=== PATIENT | female | born 1995 | race African-American/Black ===

== ENCOUNTER 2016-12-21 01:26 | Emergency (ER) | payer MEDICAID ==
[~2016-12-21] VITALS: Ht 172.7 cm; Wt 84.1 kg
[~2016-12-21 01:26] MED LIST: RISP1TAB89 PO; SODI44SP18 NASAL
[2016-12-21] MEDS ORDERED: ACETAMINOPHEN 325 MG TABLET PO ONE (03:15)
[2016-12-21] MEDS ORDERED: PredniSONE 20 MG TABLET PO ONE (03:15)
[2016-12-21 03:40] VITALS: BP 134/80
== END 2016-12-21 03:41 | disposition home or self-care (01) ==
LOC: EMS 01:30
DX: H10.9 Unspecified conjunctivitis (principal); Z88.8 Allergy status to other drugs, medicaments and biological substances
CPT/HCPCS: 99283; J7512

== ENCOUNTER 2023-06-23 16:47 | Emergency (ER) | payer OTHER ==
[~2023-06-23] VITALS: Ht 170.2 cm; Wt 90.9 kg
[2023-06-23 17:16] VITALS: BP 112/50; PULSE 90; RESP 14; TEMP 98.8
== END 2023-06-23 18:16 | disposition left against medical advice (07) ==
LOC: EMS 16:48
DX: M25.522 Pain in left elbow (principal); M25.572 Pain in left ankle and joints of left foot; Z53.21 Procedure and treatment not carried out due to patient leaving prior to being seen by health care provider
CPT/HCPCS: 99281; Z7502

== ENCOUNTER 2024-12-02 13:04 | Emergency (ER) | payer SELFPAY ==
[~2024-12-02] VITALS: Ht 177.8 cm; Wt 90.9 kg
[2024-12-02 13:13] VITALS: TEMP 98.7
[2024-12-02 13:26] LABS: COVID AG,FIA SOURCE NASAL SWAB
[2024-12-02 14:09] LABS: INFLUENZA TYPE A NEGATIVE FOR TYPE A (NEGATIVE); INFLUENZA TYPE B NEGATIVE FOR TYPE B (NEGATIVE); SARS-COV2 (COVID) ANTIGEN,FIA Negative (Negative)
[2024-12-02] MEDS: DEXAMETHASONE 4 MG TABLET PO ONE (14:34)
[2024-12-02] MEDS: MAALOX/LIDOCAINE/NYSTATIN SUSP 5 ML ORAL.SYG PO ONE (14:34)
[2024-12-02] MEDS ORDERED: ACET-3385 PO (15:16)
[2024-12-02] MEDS ORDERED: NYST100033 PO (15:31)
[2024-12-02 16:21] VITALS: BP 118/65; PULSE 95; RESP 18; O2SAT 98
== END 2024-12-02 16:23 | disposition home or self-care (01) ==
LOC: EMS 13:04
DX: B37.0 Candidal stomatitis (principal); F10.90 Alcohol use, unspecified, uncomplicated; Z98.890 Other specified postprocedural states; Z20.822 Contact with and (suspected) exposure to COVID-19
CPT/HCPCS: 99283; 87426; 87430; 87804; J8540

== ENCOUNTER 2024-12-13 05:11 | Emergency (ER) | payer MEDICAID ==
[~2024-12-13] VITALS: Ht 170.2 cm; Wt 95.5 kg
[~2024-12-13 05:11] MED LIST changes: +ACET-3385 PO; +NYST100033 PO; -RISP1TAB89 PO; -SODI44SP18 NASAL
[2024-12-13 05:19] VITALS: TEMP 99
[2024-12-13] MEDS: DOXYCYCLINE HYCLATE 100 MG TABLET PO ONE (06:12)
[2024-12-13] MEDS ORDERED: POLY17PO47 PO (06:19)
[2024-12-13] MEDS ORDERED: NYST100033 PO (06:19)
[2024-12-13] MEDS ORDERED: DOXY-354 PO (06:19)
[2024-12-13 06:28] VITALS: BP 125/69; PULSE 83; RESP 15; O2SAT 98
== END 2024-12-13 06:46 | disposition home or self-care (01) ==
LOC: EMS 05:12
DX: L02.415 Cutaneous abscess of right lower limb (principal); L03.115 Cellulitis of right lower limb; K59.00 Constipation, unspecified; M62.08 Separation of muscle (nontraumatic), other site; W19.XXXA Unspecified fall, initial encounter
CPT/HCPCS: 99284; Z7502; Z7610